=== PATIENT | female | born 1995 | race Caucasian/White ===

== ENCOUNTER 2018-05-07 00:52 | Emergency (ER) | payer SELFPAY ==
[~2018-05-07] VITALS: Ht 177.8 cm; Wt 53.6 kg
[2018-05-07 00:56] VITALS: BP 118/72
--- NOTE | 2018-05-07 01:09 | NUR ---
PT BIBA FOR CONSTIPATION. PT STATES THAT SHE HAS NOT HAD A BM IN 2 WEEKS. ABD IS FIRM, DISTENDED, BOWEL SOUNDS ACTIVE X4 QUADRANTS. PT REPORTS DISTENTION LIKE PAIN IN ABD AT 05/29. ER MD TO SEE PT. VSS. SAFETY PRECAUTIONS IN PLACE. WILL CONTINUE TO MONITOR.
--- NOTE | 2018-05-07 02:50 | NUR ---
Patient discharged with v/s stable. Written and verbal after care instructions given and explained. Patient alert, oriented and verbalized understanding of instructions. Ambulatory with steady gait. All questions addressed prior to discharge. ID band removed. Patient advised to follow up with PMD. Rx of ibuprofen, golytely, glycerin suppository, and magnesium citrate given. Patient educated on indication of medication including possible reaction and side effects. Opportunity to ask questions provided and answered.
== END 2018-05-07 02:50 | disposition home or self-care (01) ==
LOC: MED 00:52
DX: K59.00 Constipation, unspecified (principal)
CPT/HCPCS: 74021; 81025; 99283